=== PATIENT | female | born 1935 | race Caucasian/White ===

== ENCOUNTER 2017-11-15 15:54 | Inpatient (IN) | payer OTHER ==
[~2017-11-15] VITALS: Ht 152.4 cm; Wt 60.2 kg
[2017-11-20 14:32] VITALS: BP 165/74
[2017-11-20] MEDS ORDERED: GLUCOPHAGE500 MG PO (21:54)
[2017-11-20] MEDS ORDERED: ATIVAN0.5 MG PO (21:55)
[2017-11-20] MEDS ORDERED: SEROQUEL12.5 MG PO (21:56)
[2017-11-20] MEDS ORDERED: NORVASC2.5 MG PO (21:57)
[2017-11-20] MEDS ORDERED: ULTRAM50 MG PO (21:58)
[2017-11-20] MEDS ORDERED: ELAVIL10 MG PO (21:58)
[2017-11-20 22:30] VITALS: BP 162/69
[2017-11-21] MEDS ORDERED: VITAMIN D-3 401 EACH PO (05:23)
[2017-11-21] MEDS ORDERED: LASIX20 MG PO (05:25)
[2017-11-21] MEDS ORDERED: PRAVACHOL20 MG PO (05:29)
[2017-11-21] MEDS ORDERED: ADULT ASPIRIN81 MG PO (05:30)
[2017-11-21] MEDS ORDERED: PANTOPRAZOLE SO40 MG PO (05:31)
[2017-11-21] MEDS ORDERED: COREG12.5 M1 PO (05:33)
[2017-11-21] MEDS ORDERED: COZAAR50 MG PO (05:35)
[2017-11-21] MEDS ORDERED: CENTRUM SILVER1 EAC3 PO (05:35)
[2017-11-21] MEDS ORDERED: CALTRATE 600+D1 EAC1 PO (05:36)
[2017-11-21 07:00] VITALS: BP 170/70
[2017-11-21 08:23] LABS: HEMATOCRIT 40.7 % (36.0-46.0); HEMOGLOBIN 13.4 G/DL (11.9-15.5); MCH 29.1 PG (29.0-34.0); MCHC 32.9 G/DL (30.0-36.0); MCV 88.5 FL (83-99); PLATELET COUNT 239 K/uL (156-360); RBC DIS.WIDTH-SD 42.1 % (39-53); WHITE BLOOD COUNT 7.9 K/uL (4.1-10.2)
[2017-11-21 09:23] LABS: CHLORIDE 102 MEQ/L (99-109); POTASSIUM 4.3 MEQ/L (3.7-5.4); SODIUM 135 MEQ/L (136-147); TOTAL BILIRUBIN 0.6 MG/DL (0.0-1.0)
[2017-11-21 09:29] LABS: ALKALINE PHOSPHATASE 52 IU/L (3-129); ALT (GPT) 14 IU/L (3-49); AST (GOT) 18 IU/L (2-34); CREATININE 0.6 MG/DL (0.6-1.3); GFR ESTIMATE (CALCULATED) > 59 mL/min/; GLUCOSE 157 mg/dL (70-99); TOTAL PROTEIN 6.5 G/DL (6.4-8.3); UREA NITROGEN (BUN) 15 mg/dL (9-23)
[2017-11-21 15:50] VITALS: BP 153/71
[2017-11-22 05:29] VITALS: BP 148/76
[2017-11-22 15:50] VITALS: BP 148/78
[2017-11-23 04:53] VITALS: BP 150/69; BP 151/69
[2017-11-23 15:00] VITALS: BP 139/59
[2017-11-24 05:22] VITALS: BP 140/55
[2017-11-24 15:30] VITALS: BP 142/58
[2017-11-25 06:45] VITALS: BP 128/61
[2017-11-25 16:14] VITALS: BP 179/84
[2017-11-26 05:50] VITALS: BP 180/88
[2017-11-26 15:43] VITALS: BP 171/79
[2017-11-26 16:22] VITALS: BP 146/56
[2017-11-27 04:48] VITALS: BP 143/70
[2017-11-27 15:26] VITALS: BP 122/78
[2017-11-28 06:24] VITALS: BP 140/58
[2017-11-28 10:18] LABS: ALBUMIN 3.8 G/DL (3.2-4.8); ALKALINE PHOSPHATASE 49 IU/L (3-129); ALT (GPT) 12 IU/L (3-49); AST (GOT) 19 IU/L (2-34); CHLORIDE 102 MEQ/L (99-109); CREATININE 0.6 MG/DL (0.6-1.3); GFR ESTIMATE (CALCULATED) > 59 mL/min/; GLUCOSE 200 mg/dL (70-99); POTASSIUM 4.1 MEQ/L (3.7-5.4); SODIUM 135 MEQ/L (136-147); TOTAL BILIRUBIN 0.4 MG/DL (0.0-1.0); UREA NITROGEN (BUN) 19 mg/dL (9-23)
[2017-11-28 10:34] LABS: HEMATOCRIT 38.7 % (36.0-46.0); HEMOGLOBIN 12.6 G/DL (11.9-15.5); MCH 29.4 PG (29.0-34.0); MCHC 32.6 G/DL (30.0-36.0); MCV 90.2 FL (83-99); PLATELET COUNT 177 K/uL (156-360); RBC DIS.WIDTH-CV 12.8 % (11.8-14.6); RED BLOOD COUNT 4.29 M/uL (3.80-5.20); WHITE BLOOD COUNT 8.6 K/uL (4.1-10.2)
[2017-11-28 15:25] VITALS: BP 152/70
[2017-11-29 03:56] VITALS: BP 143/63
[2017-11-29] MEDS ORDERED: DONEPEZIL HCL5 MG PO (08:18)
[2017-11-29] MEDS ORDERED: LASIX20 MG PO (08:18)
[2017-11-29] MEDS ORDERED: PRAVASTATIN SOD40 MG PO (08:18)
[2017-11-29] MEDS ORDERED: ELIQUIS2.5 MG PO (08:18)
[2017-11-29] MEDS ORDERED: NORVASC2.5 MG PO (08:18)
[2017-11-29] MEDS ORDERED: AMLODIPINE BESYL5 MG PO (08:18)
[2017-11-29] MEDS ORDERED: COZAAR50 MG PO (08:18)
[2017-11-29] MEDS ORDERED: CARVEDILOL25 MG PO (08:18)
== END 2017-11-29 10:37 | disposition home health service (06) | DRG 57 ==
LOC: 3WEST 15:54 → EDBD 11-20 14:02 → 3WEST 11-20 14:02
PROVIDERS: Physical Medicine & Rehabilitation Pain Medicine; Psychiatry & Neurology Neurology
PROC: F07M0ZZ Range of Motion and Joint Mobility Treatment of Musculoskeletal System - Whole Body (ICD-10-PCS; principal; 2017-11-20)
DX: I69.354 Hemiplegia and hemiparesis following cerebral infarction affecting left non-dominant side (principal); E78.5 Hyperlipidemia, unspecified; E87.1 Hypo-osmolality and hyponatremia; E11.9 Type 2 diabetes mellitus without complications; I48.2 Chronic atrial fibrillation; F41.9 Anxiety disorder, unspecified; I10 Essential (primary) hypertension; I65.23 Occlusion and stenosis of bilateral carotid arteries; F02.80 Dementia in other diseases classified elsewhere, unspecified severity, without behavioral disturbance, psychotic disturbance, mood disturbance, and anxiety; K21.9 Gastro-esophageal reflux disease without esophagitis; R41.4 Neurologic neglect syndrome; I25.10 Atherosclerotic heart disease of native coronary artery without angina pectoris; Z85.3 Personal history of malignant neoplasm of breast; Z83.3 Family history of diabetes mellitus; Z82.49 Family history of ischemic heart disease and other diseases of the circulatory system; Z82.3 Family history of stroke; Z87.891 Personal history of nicotine dependence; Z90.12 Acquired absence of left breast and nipple; Z88.0 Allergy status to penicillin; I25.2 Old myocardial infarction; R41.0 Disorientation, unspecified; Z79.4 Long term (current) use of insulin
CPT/HCPCS: 80053; 82948; 85027; 92523 GN; 97110 GO; 97530 GP; G0515 GO; J1815